=== PATIENT | female | born 1935 | race Two or more races ===

== ENCOUNTER 2023-03-12 16:36 | Emergency (ER) | payer OTHER ==
[~2023-03-12] VITALS: Ht 154.9 cm; Wt 63.5 kg
== END 2023-03-12 23:59 | disposition home or self-care (01) ==
LOC: ER 16:36
DX: S00.12XA Contusion of left eyelid and periocular area, initial encounter (principal); W19.XXXA Unspecified fall, initial encounter; Y93.89 Activity, other specified; Y92.098 Other place in other non-institutional residence as the place of occurrence of the external cause; Y99.8 Other external cause status; M25.521 Pain in right elbow; M25.531 Pain in right wrist; M25.552 Pain in left hip; I10 Essential (primary) hypertension; E11.9 Type 2 diabetes mellitus without complications; Z91.013 Allergy to seafood
CPT/HCPCS: 29105; 70450; 72100; 73110; 73521; 96365; 99284; J1885